=== PATIENT | male | born 1940 | race Caucasian/White ===

== ENCOUNTER → 2018-08-16 | Outpatient (REF) | payer MEDICARE ==
[2018-08-16 16:47] LABS: HEMATOCRIT 47.1 % (42.0-52.0); HEMOGLOBIN 15.7 g/dl (13.5-17.5); MEAN CORPUSCULAR HEMOGLOBIN 31.1 pg (27.0-33.0); MEAN CORPUSCULAR HGB CONC 33.3 g/dl (32.0-36.5); MEAN CORPUSCULAR VOLUME 93.3 fl (80.0-96.0); PLATELET COUNT, AUTOMATED 251 10^3/uL (150-450); RED BLOOD COUNT 5.05 10^6/uL (4.30-6.10); WHITE BLOOD COUNT 6.6 10^3/uL (4.0-10.0)
[2018-08-16 17:03] LABS: ALBUMIN 4.1 GM/DL (3.2-5.2); ALT/SGPT 29 U/L (12-78); BILIRUBIN,TOTAL 0.7 MG/DL (0.2-1.0); BLOOD UREA NITROGEN 25 MG/DL (7-18); CALCIUM LEVEL 9.6 MG/DL (8.8-10.2); CARBON DIOXIDE LEVEL 30 MEQ/L (21-32); CHLORIDE LEVEL 105 MEQ/L (98-107); CHOLESTEROL LEVEL 236 MG/DL (<200); CHOLESTEROL RISK RATIO 3.746 (<5); GLOMERULAR FILTRATION RATE > 60.0 (>42); GLUCOSE, FASTING 107 MG/DL (70-100); HDL CHOLESTEROL 63 MG/DL (>40); LDL CHOLESTEROL 155 MG/DL (<100); NON-HDL-C 173 MG/DL; POTASSIUM SERUM 4.7 MEQ/L (3.5-5.1); SODIUM LEVEL 140 MEQ/L (136-145); TOTAL 25(OH) VITAMIN D 111.9 NG/ML (30.0-100.0); TOTAL PROTEIN 7.4 GM/DL (6.4-8.2); TRIGLYCERIDES LEVEL 91 MG/DL (<150)
== END ==
LOC: M SFHCCLAY 09:42
PROVIDERS: ATTEND Family Medicine
DX: Z00.01 Encounter for general adult medical examination with abnormal findings (principal); R03.0 Elevated blood-pressure reading, without diagnosis of hypertension; L57.0 Actinic keratosis

== ENCOUNTER → 2019-10-18 | Outpatient (REF) | payer MEDICARE ==
[2019-10-18 17:29] LABS: HEMATOCRIT 43.9 % (42.0-52.0); HEMOGLOBIN 14.8 g/dl (13.5-17.5); MEAN CORPUSCULAR HEMOGLOBIN 32.1 pg (27.0-33.0); MEAN CORPUSCULAR HGB CONC 33.7 g/dl (32.0-36.5); MEAN CORPUSCULAR VOLUME 95.2 fl (80.0-96.0); PLATELET COUNT, AUTOMATED 231 10^3/uL (150-450); RED BLOOD COUNT 4.61 10^6/uL (4.30-6.10); WHITE BLOOD COUNT 6.7 10^3/uL (4.0-10.0)
[2019-10-18 17:31] LABS: ALBUMIN 3.9 GM/DL (3.2-5.2); ALT/SGPT 23 U/L (12-78); BILIRUBIN,TOTAL 0.7 MG/DL (0.2-1.0); BLOOD UREA NITROGEN 29 MG/DL (7-18); CARBON DIOXIDE LEVEL 30 MEQ/L (21-32); CHLORIDE LEVEL 106 MEQ/L (98-107); CHOLESTEROL LEVEL 218 MG/DL (<200); CHOLESTEROL RISK RATIO 3.406 (<5); CREATININE FOR GFR 1.23 MG/DL (0.70-1.30); GLOMERULAR FILTRATION RATE > 60.0 (>42); GLUCOSE, FASTING 97 MG/DL (70-100); HDL CHOLESTEROL 64 MG/DL (>40); LDL CHOLESTEROL 136 MG/DL (<100); NON-HDL-C 154 MG/DL; POTASSIUM SERUM 4.6 MEQ/L (3.5-5.1); SODIUM LEVEL 139 MEQ/L (136-145); THYROID STIMULATING HORMONE 0.661 uIU/ML (0.358-3.740); TRIGLYCERIDES LEVEL 89 MG/DL (<150)
== END ==
LOC: M SFHCCLAY 10:31
PROVIDERS: ATTEND Family Medicine
DX: E78.2 Mixed hyperlipidemia (principal); J30.1 Allergic rhinitis due to pollen; E55.9 Vitamin D deficiency, unspecified

== ENCOUNTER → 2020-03-06 | Outpatient (CLI) | payer MEDICARE ==
--- NOTE | 2020-03-11 10:03 | REP ---
LUMBAR SPINE SERIES: 5-VIEWS HISTORY: Low back pain. COMPARISON IMAGING: None. FINDINGS: Lumbar vertebral body heights are preserved. There is a dextroconvex scoliotic curve. There is diffuse degenerative disc disease with prominent anterior and left lateral osteophyte formation at each lumbar level. There is no evidence of spondylolysis or spondylolisthesis. No fracture or collapse is seen. Osteoarthritic facet narrowing and sclerosis are present bilaterally at L5-S1 and L4-5. Sacrum and sacroiliac (SI) joints are intact. No bony destructive lesion. IMPRESSION: Dextroconvex lumbar scoliosis. Diffuse degenerative disc disease and osteoarthritic facet changes. No acute abnormality. MTDD
--- NOTE | 2020-03-11 10:04 | REP ---
PELVIS BILATERAL HIPS: 6-VIEWS HISTORY: Hip pain, groin pain. FINDINGS: AP views of the pelvis and AP and frog leg view of each hip demonstrate severe bilateral osteoarthritis of the hips with superior joint space narrowing, femoral head spurring, and sclerosis, and acetabular spurring and sclerosis. The changes are somewhat more prominent on the right than the left. No flattening is seen. No bony destructive lesion. Bony pelvic ring appears intact. Sacrum, sacroiliac (SI) joints, and symphysis pubis are intact. IMPRESSION: [id number] bilateral hip joint osteoarthritis. MTDD
== END ==
LOC: M CLY 11:59
PROVIDERS: ATTEND Physician Assistant
DX: M16.0 Bilateral primary osteoarthritis of hip (principal); M54.5 Low back pain; M25.552 Pain in left hip; M25.551 Pain in right hip

== ENCOUNTER → 2020-08-16 | Outpatient (REF) | payer MEDICARE ==
[2020-08-16 11:42] LABS: BASO # 0.1 10^3/uL (0.0-0.2); BASO % 0.4 % (0.0-1.0); EOS # 0.1 10^3/uL (0.0-0.5); EOS % 0.3 % (0.0-3.0); HEMOGLOBIN 15.3 g/dl (13.5-17.5); LYMPH # 1.2 10^3/uL (1.5-5.0); LYMPH % 6.9 % (24.0-44.0); MEAN CORPUSCULAR HEMOGLOBIN 32.2 pg (27.0-33.0); MEAN CORPUSCULAR VOLUME 94.7 fl (80.0-96.0); MONO # 1.8 10^3/uL (0.0-0.8); MONO % 10.8 % (2.0-8.0); NEUTROPHILS # 13.7 10^3/uL (1.5-8.5); NEUTROPHILS % 81.1 % (36.0-66.0); PLATELET COUNT, AUTOMATED 274 10^3/uL (150-450); RED BLOOD COUNT 4.75 10^6/uL (4.30-6.10)
[2020-08-16 11:45] LABS: WHITE BLOOD COUNT 16.9 10^3/uL (4.0-10.0)
[2020-08-16 12:22] LABS: ALBUMIN 3.8 GM/DL (3.2-5.2); BILIRUBIN,TOTAL 1.1 MG/DL (0.2-1.0); CALCIUM LEVEL 9.4 MG/DL (8.8-10.2); CREATININE FOR GFR 1.53 MG/DL (0.70-1.30); GLOMERULAR FILTRATION RATE 47.1 (>42); POTASSIUM SERUM 4.7 MEQ/L (3.5-5.1); THYROID STIMULATING HORMONE 1.05 uIU/ML (0.358-3.740); TOTAL PROTEIN 7.3 GM/DL (6.4-8.2)
== END ==
LOC: M SFHCCLAY 07:24
PROVIDERS: ATTEND Family Medicine
DX: K29.50 Unspecified chronic gastritis without bleeding (principal); R11.0 Nausea; R10.13 Epigastric pain; Z79.899 Other long term (current) drug therapy

== ENCOUNTER → 2020-09-12 | Outpatient (REF) | payer MEDICARE ==
[2020-09-12 16:43] LABS: BASO # 0.1 10^3/uL (0.0-0.2); BASO % 1.1 % (0.0-1.0); EOS # 0.1 10^3/uL (0.0-0.5); EOS % 1.4 % (0.0-3.0); HEMATOCRIT 45.1 % (42.0-52.0); HEMOGLOBIN 14.8 g/dl (13.5-17.5); LYMPH # 1.3 10^3/uL (1.5-5.0); LYMPH % 20.2 % (24.0-44.0); MEAN CORPUSCULAR HEMOGLOBIN 31.1 pg (27.0-33.0); MEAN CORPUSCULAR HGB CONC 32.8 g/dl (32.0-36.5); MEAN CORPUSCULAR VOLUME 94.7 fl (80.0-96.0); MONO # 0.6 10^3/uL (0.0-0.8); MONO % 8.5 % (2.0-8.0); NEUTROPHILS # 4.5 10^3/uL (1.5-8.5); NEUTROPHILS % 68.5 % (36.0-66.0); PLATELET COUNT, AUTOMATED 198 10^3/uL (150-450); RED BLOOD COUNT 4.76 10^6/uL (4.30-6.10); WHITE BLOOD COUNT 6.5 10^3/uL (4.0-10.0)
[2020-09-12 22:39] LABS: BLOOD UREA NITROGEN 22 MG/DL (7-18); CALCIUM LEVEL 9.5 MG/DL (8.8-10.2); CARBON DIOXIDE LEVEL 31 MEQ/L (21-32); CHLORIDE LEVEL 107 MEQ/L (98-107); GLOMERULAR FILTRATION RATE > 60.0 (>42); GLUCOSE, FASTING 102 MG/DL (70-100); POTASSIUM SERUM 4.2 MEQ/L (3.5-5.1); SODIUM LEVEL 142 MEQ/L (136-145)
== END ==
LOC: M SFHCCLAY 10:49
PROVIDERS: ATTEND Family Medicine
DX: I10 Essential (primary) hypertension (principal); D72.828 Other elevated white blood cell count

== ENCOUNTER → 2020-11-06 | Outpatient (REF) | payer MEDICARE ==
[2020-11-06 16:25] LABS: BASO # 0.1 10^3/uL (0.0-0.2); BASO % 1.1 % (0.0-1.0); EOS # 0.1 10^3/uL (0.0-0.5); EOS % 1.8 % (0.0-3.0); HEMATOCRIT 42.6 % (42.0-52.0); LYMPH # 1.4 10^3/uL (1.5-5.0); LYMPH % 22.3 % (24.0-44.0); MEAN CORPUSCULAR HGB CONC 32.9 g/dl (32.0-36.5); MEAN CORPUSCULAR VOLUME 97.3 fl (80.0-96.0); MONO # 0.5 10^3/uL (0.0-0.8); MONO % 8.7 % (2.0-8.0); NEUTROPHILS % 65.6 % (36.0-66.0); PLATELET COUNT, AUTOMATED 217 10^3/uL (150-450); RED BLOOD COUNT 4.38 10^6/uL (4.30-6.10); WHITE BLOOD COUNT 6.1 10^3/uL (4.0-10.0)
[2020-11-06 17:54] LABS: ALBUMIN 3.9 GM/DL (3.2-5.2); BILIRUBIN,TOTAL 0.5 MG/DL (0.2-1.0); CALCIUM LEVEL 9.2 MG/DL (8.8-10.2); CHOLESTEROL RISK RATIO 2.861 (<5); CREATININE FOR GFR 1.34 MG/DL (0.70-1.30); GLOMERULAR FILTRATION RATE 54.7 (>42); POTASSIUM SERUM 4.7 MEQ/L (3.5-5.1); THYROID STIMULATING HORMONE 1.3 uIU/ML (0.358-3.740); TOTAL 25(OH) VITAMIN D 73.3 NG/ML (30.0-100.0)
== END ==
LOC: M SFHCCLAY 10:57
PROVIDERS: ATTEND Family Medicine
DX: E78.2 Mixed hyperlipidemia (principal); E55.9 Vitamin D deficiency, unspecified; I10 Essential (primary) hypertension; D72.828 Other elevated white blood cell count

== ENCOUNTER → 2022-05-05 | Outpatient (REF) | payer MEDICARE ==
[2022-05-05 17:10] LABS: HEMATOCRIT 46.9 % (42.0-52.0); HEMOGLOBIN 15.4 g/dl (13.5-17.5); MEAN CORPUSCULAR HEMOGLOBIN 31.8 pg (27.0-33.0); MEAN CORPUSCULAR HGB CONC 32.8 g/dl (32.0-36.5); MEAN CORPUSCULAR VOLUME 96.7 fl (80.0-96.0); PLATELET COUNT, AUTOMATED 246 10^3/uL (150-450); RED BLOOD COUNT 4.85 10^6/uL (4.30-6.10); WHITE BLOOD COUNT 7.9 10^3/uL (4.0-10.0)
[2022-05-05 18:04] LABS: ALBUMIN 4.4 G/DL (3.2-5.2); BILIRUBIN,TOTAL 0.8 MG/DL (0.3-1.2); CALCIUM LEVEL 9.9 MG/DL (8.3-10.6); CHOLESTEROL RISK RATIO 3.87 (<5); CREATININE FOR GFR 1.65 MG/DL (0.70-1.30); GLOMERULAR FILTRATION RATE 42.9 (>35); HDL CHOLESTEROL 57.3 MG/DL (>40); LDL CHOLESTEROL 148.5 MG/DL (<100); POTASSIUM SERUM 5.9 MMOL/L (3.5-5.1); TOTAL PROTEIN 7.6 G/DL (5.7-8.2)
[2022-05-06 12:55] LABS: TOTAL 25(OH) VITAMIN D 45.4 NG/ML (20.0-100.0)
== END ==
LOC: M SFHCCLAY 09:58
PROVIDERS: ATTEND Family Medicine
DX: I10 Essential (primary) hypertension (principal); E55.9 Vitamin D deficiency, unspecified

== ENCOUNTER → 2022-05-12 | Outpatient (REF) | payer MEDICARE ==
[2022-05-12 17:45] LABS: CALCIUM LEVEL 9.5 MG/DL (8.3-10.6); CREATININE FOR GFR 1.43 MG/DL (0.70-1.30); GLOMERULAR FILTRATION RATE 50.7 (>35); POTASSIUM SERUM 4.5 MMOL/L (3.5-5.1)
== END ==
LOC: M SFHCCLAY 14:10
PROVIDERS: ATTEND Family Medicine
DX: E87.5 Hyperkalemia (principal)

== ENCOUNTER → 2023-07-27 | Outpatient (REF) | payer MEDICARE ==
[2023-07-27 18:01] LABS: HEMATOCRIT 49.9 % (42.0-52.0); HEMOGLOBIN 16.9 g/dl (13.5-17.5); MEAN CORPUSCULAR HEMOGLOBIN 32.5 pg (27.0-33.0); MEAN CORPUSCULAR HGB CONC 33.9 g/dl (32.0-36.5); PLATELET COUNT, AUTOMATED 255 10^3/uL (150-450)
[2023-07-27 18:29] LABS: TOTAL 25(OH) VITAMIN D 32.6 NG/ML (20.0-100.0)
[2023-07-27 18:30] LABS: ALBUMIN 4.3 G/DL (3.2-5.2); BILIRUBIN,TOTAL 0.9 MG/DL (0.3-1.2); CHOLESTEROL RISK RATIO 4.36 (<5); CREATININE FOR GFR 1.49 MG/DL (0.70-1.30); GLOMERULAR FILTRATION RATE 48.2 (>35); HDL CHOLESTEROL 54.1 MG/DL (>40); LDL CHOLESTEROL 161.1 MG/DL (<100); NON-HDL-C 181.9 MG/DL; POTASSIUM SERUM 5.5 MMOL/L (3.5-5.1); TOTAL PROTEIN 7.6 G/DL (5.7-8.2)
== END ==
LOC: M SFHCCLAY 11:55
PROVIDERS: ATTEND Family Medicine
DX: I10 Essential (primary) hypertension (principal); E55.9 Vitamin D deficiency, unspecified